=== PATIENT | male | born 1980 | race African-American/Black ===

== ENCOUNTER 2020-09-18 13:31 | Emergency (ER) | payer OTHER ==
[~2020-09-18] VITALS: Ht 180.3 cm; Wt 77.3 kg
[~2020-09-18 13:31] MED LIST: AMBIEN 5MG TABLE5 MG PO; CEPHALEXIN500 M1 PO; NO HOME MEDICATIONS; NORCO 325 MG-51 TAB PO; PROVENTIL0.09 MG/A1 IH; TENORMIN 2525 MG/TAB PO
[2020-09-18 13:32] VITALS: TEMP 97.5
[2020-09-18] MEDS ORDERED: RISPERDAL 1M1 MG/TAB PO (13:50)
[2020-09-18] MEDS ORDERED: ABILIFY5 MG PO (13:50)
[2020-09-18 13:55] LABS: PROTHROMBIN TIME 11.6 SECONDS (9.7-12.8)
[2020-09-18 13:56] LABS: BASO # 0.1 (0.0-0.2); BASO % 0.5 % (0.0-2.0); EOS # 0.2 (0.0-0.7); EOS % 2.5 % (0-4.0); GRAN # 5.3 (1.4-6.5); GRAN % 56.8 % (42.2-75.2); HEMOGLOBIN 13.9 g/dl (13.5-18.0); LYMPH # 2.8 (1.2-3.4); LYMPH % 30.5 % (20.0-51.0); MEAN CELL VOLUME 86 fl (80.0-100.0); MEAN CORPUSCULAR HEMOGLOBIN 29 pg (27.0-31.0); MEAN CORPUSCULAR HGB CONC 33 g/dl (33.0-37.0); MEAN PLATELET VOLUME 9.2 fl (7.4-10.4); MONO # 0.9 (0.1-0.6); MONO % 9.3 % (1.7-9.3); PLATELET COUNT 311 K/mm3 (130-400); RED BLOOD COUNT 4.88 M/mm3 (4.20-5.60); REDCELL DISTRIBUTION WIDTH-CV 14.1 % (11.5-14.5)
[2020-09-18 13:58] LABS: PARTIAL THROMBOPLASTIN TIME 23.4 SECONDS (26.0-37.0)
[2020-09-18 13:59] LABS: ALANINE AMINOTRANSFERASE 20 U/L (4-49); ALBUMIN 3.9 gm/dL (3.5-5.0); ALKALINE PHOSPHATASE 49 U/L (50-136); ANION GAP 8 mmol/L (7-16); AST,SGOT 36 U/L (15-37); BILIRUBIN,TOTAL 0.4 mg/dL (0.0-1.0); BLOOD UREA NITROGEN 14 mg/dL (9-20); CALCIUM 8.5 mg/dL (8.4-10.2); CARBON DIOXIDE 25 mmol/L (22-30); CHLORIDE 104 mmol/L (98-107); GLUCOSE 110 mg/dL (74-106); POTASSIUM 4.2 mmol/L (3.4-5.0); SODIUM 136 mmol/L (137-145); TOTAL PROTEIN 6.8 gm/dL (6.4-8.2)
[2020-09-18 14:14] LABS: TROPONIN-I < 0.012 ng/mL (0.000-0.035)
[2020-09-18 15:58] LABS: TRICYCLIC ANTIDEPRESS URINE NEGATIVE
[2020-09-18 17:46] VITALS: BP 133/72; PULSE 95
== END 2020-09-18 17:46 | disposition home or self-care (01) ==
LOC: COL.ER 13:31
PROVIDERS: Family Medicine
DX: F15.10 Other stimulant abuse, uncomplicated (principal); F17.210 Nicotine dependence, cigarettes, uncomplicated